=== PATIENT | male | born 1950 | race Caucasian/White ===

== ENCOUNTER 2016-09-11 07:54 | Emergency (ER) | payer SELFPAY ==
[~2016-09-11] VITALS: Ht 177.8 cm; Wt 61.2 kg
[2016-09-11 08:06] VITALS: BP 129/85
== END 2016-09-11 10:12 | disposition home or self-care (01) ==
LOC: ED 10:06
DX: S52.021A Displaced fracture of olecranon process without intraarticular extension of right ulna, initial encounter for closed fracture (principal); W19.XXXA Unspecified fall, initial encounter; Y93.89 Activity, other specified; Y92.410 Unspecified street and highway as the place of occurrence of the external cause; Y99.8 Other external cause status
CPT/HCPCS: 29105